=== PATIENT | female | born 1995 | race Caucasian/White ===

== ENCOUNTER 2021-03-07 18:03 | Day surgery (SDC) | payer BC ==
[2021-03-07] MEDS ORDERED: hydrALAZINE 20 MG/ML VIAL SLOW IVP PRN (20:09)
== END 2021-03-07 21:07 | disposition home or self-care (01) ==
LOC: CSHLD/OP 18:03
PROVIDERS: ATTEND Student in an Organized Health Care Education/Training Program
DX: O47.1 False labor at or after 37 completed weeks of gestation (principal); Z3A.38 38 weeks gestation of pregnancy
CPT/HCPCS: 99283

== ENCOUNTER 2021-03-10 06:57 | Day surgery (SDC) | payer BC ==
[2021-03-10 07:30] VITALS: BMI 31.4
[2021-03-10 08:10] LABS: Amnisure Test No Membranes Rupture (No Rupture)
[2021-03-10] MEDS ORDERED: hydrALAZINE 20 MG/ML VIAL SLOW IVP PRN (09:01)
== END 2021-03-10 09:37 | disposition home health service (06) ==
LOC: CSHLD/OP 06:57
PROVIDERS: ATTEND Student in an Organized Health Care Education/Training Program
DX: O47.1 False labor at or after 37 completed weeks of gestation (principal); Z3A.38 38 weeks gestation of pregnancy; Z20.822 Contact with and (suspected) exposure to COVID-19
CPT/HCPCS: 84112; 99283

== ENCOUNTER 2021-03-10 15:31 | Inpatient (IN) | payer BC ==
[2021-03-10] MEDS ORDERED: Acetaminophen 500 MG TAB PO PRN (15:40)
[2021-03-10] MEDS ORDERED: Carboprost 250 MCG/ML AMP IM PRN (15:40)
[2021-03-10] MEDS ORDERED: hydrALAZINE 20 MG/ML VIAL SLOW IVP PRN (15:40)
[2021-03-10] MEDS ORDERED: Butorphanol Tartrate 1 MG/ML VIAL SLOW IVP PRN (15:40)
[2021-03-10] MEDS ORDERED: Ondansetron PF 4 MG/2 ML Vial IVP PRN ×2 (15:40→17:31)
[2021-03-10] MEDS ORDERED: HYDROcodone/Acetaminophen 5/325 mg Tablet PO PRN ×2 (15:40)
[2021-03-10] MEDS ORDERED: Methylergonovine 0.2 MG/ML VIAL IM PRN (15:40)
[2021-03-10] MEDS ORDERED: Diphenoxylate HCl/Atropine Tablet PO PRN ×2 (15:40)
[2021-03-10] MEDS ORDERED: Promethazine HCl 25 MG/ML VIAL IM PRN ×2 (15:40→17:31)
[2021-03-10] MEDS ORDERED: Misoprostol 200 MCG TAB PR PRN (15:40)
[2021-03-10] MEDS ORDERED: Ibuprofen 800 MG TAB PO PRN (15:40)
[2021-03-10] MEDS ORDERED: Lidocaine 1% (PF) 30 ML VIAL SC PRN (15:40)
[2021-03-10] MEDS ORDERED: Penicillin G Potassium 5 MILL.UNITS in Sodium Chloride 0.9% 100 ML IVPB SCH (16:00)
[2021-03-10] MEDS: Lactated Ringer's 1,000 ML IV SCH ×2 (16:00→16:50)
[2021-03-10] MEDS ORDERED: Penicillin G Potassium 5 MILL.UNITS VIAL ONE (16:16)
[2021-03-10 16:24] VITALS: BMI 31.4
[2021-03-10] MEDS ORDERED: Fentanyl 4 mcg/Bup 0.1% Cadd 100 ML ONE (16:37)
[2021-03-10 16:41] LABS: Hemoglobin 11.8 g/dL (12.0-15.5); Mean Corpuscular HGB CONC 33.6 g/dL (32.0-36.0); Mean Corpuscular Hemoglobin 28.2 pg (27.0-33.0); Mean Platelet Volume 10.8 fl (7.4-10.4); Platelet Count 296 10x3/uL (150-450); RBC Distribution Width 13.5 % (11.5-14.5); Red Blood Cell (RBC) Count 4.18 10x6/uL (3.90-5.03); White Blood Cell (WBC) Count 18.4 10x3/uL (3.5-10.5)
[2021-03-10 17:10] LABS: Hep B Surf Ag Non-Reactive S/CO (NonReactive); Syphilis Antibody Nonreactive (Nonreactive); Syphilis Antibody Index 0.06 S/CO (<1.00 Non-Reactive)
[2021-03-10] MEDS: Fentanyl 4 mcg/Bupivacaine 0.1% Cassette 100 ML EPIDURAL SCH (17:28)
[2021-03-10] MEDS ORDERED: Naloxone HCl 0.4 mg/ml Vial IVP PRN ×2 (17:31)
[2021-03-10] MEDS ORDERED: Lactated Ringer's 500 ML IV PRN (17:31)
[2021-03-10] MEDS ORDERED: Eucerin (Mineral Oil/Petrolatum,White) 30 gm Jar TOP PRN (17:31)
[2021-03-10] MEDS ORDERED: diphenhydrAMINE 50 MG/ML VIAL IVP PRN (17:31)
[2021-03-10] MEDS ORDERED: Acetaminophen 325 MG TAB PO PRN (17:31)
[2021-03-10] MEDS ORDERED: ePHEDrine Sulfate 50 MG/10 ML VIAL SLOW IVP PRN (17:36)
[2021-03-10] MEDS ORDERED: Communication Order-Pharmacy FS SCH (17:45)
[2021-03-10 17:57] LABS: HBSAg Index 0.13 S/CO (0-0.99)
[2021-03-10] MEDS ORDERED: Bupivacaine 0.25% HCL 30 ML VIAL ONE (19:51)
[2021-03-10] MEDS ORDERED: Lidocaine 2% MPF 10 ML AMP (For Epidural Use) ONE (19:51)
[2021-03-10] MEDS: Penicillin G 2.5 MILL.units 2.5 MILL.UNITS in Premix Bag 1 BAG IVPB SCH (20:15)
[2021-03-11] MEDS: Penicillin G 2.5 MILL.units 2.5 MILL.UNITS in Premix Bag 1 BAG IVPB SCH ×3 (00:32→09:59)
[2021-03-11] MEDS: Fentanyl 4 mcg/Bupivacaine 0.1% Cassette 100 ML EPIDURAL SCH (00:49)
[2021-03-11 01:28] LABS: SARS-CoV-2 PCR by NAA Not Detected (NotDetected)
[2021-03-11] MEDS: NS w/ Oxytocin 30 units 500 ML IVPB PRN ×2 (04:55→05:27)
[2021-03-11] MEDS ORDERED: Lanolin Ointment 7 GM TUBE TOP PRN (05:00)
[2021-03-11] MEDS ORDERED: NS / Oxytocin 40 units/1000ml 1,000 ML IV SCH (05:00)
[2021-03-11] MEDS ORDERED: Misoprostol 200 MCG TAB VAG PRN (05:00)
[2021-03-11] MEDS ORDERED: Ondansetron PF 4 MG/2 ML Vial IVP PRN (05:00)
[2021-03-11] MEDS ORDERED: Preparation H Ointment 28 GM TUBE PR PRN (05:00)
[2021-03-11] MEDS ORDERED: diphenhydrAMINE 25 MG CAP PO PRN (05:00)
[2021-03-11] MEDS ORDERED: HYDROcodone/Acetaminophen 5/325 mg Tablet PO PRN ×2 (05:00)
[2021-03-11] MEDS ORDERED: Bisacodyl 10 MG SUPP PR PRN (05:00)
[2021-03-11] MEDS ORDERED: Milk Of Magnesia 30 ML UDCUP PO PRN (05:00)
[2021-03-11] MEDS ORDERED: hydrALAZINE 20 MG/ML VIAL SLOW IVP PRN (05:00)
[2021-03-11] MEDS ORDERED: Benzocaine-Menthol 82.5 ML CAN TOP PRN (05:00)
[2021-03-11] MEDS: Ibuprofen 800 MG TAB PO SCH ×3 (05:26→21:42)
[2021-03-11] MEDS ORDERED: Varicella virus, LIVE 0.5 ML VIAL SC ONE (09:00)
[2021-03-11] MEDS ORDERED: Adacel (T-DAP) 0.5 ML SYRINGE IM ONE (09:00)
[2021-03-11] MEDS ORDERED: Measles/Mumps/Rubella 10 MCG/0.5 ML VIAL SC ONE (09:00)
[2021-03-11] MEDS: Ferrous Sulfate 325 MG TAB PO SCH ×2 (09:24→17:20)
[2021-03-11] MEDS: Prenatal Vitamin 1 TAB PO SCH (09:53)
[2021-03-11] MEDS: Docusate Calcium (SURFAK) 240 MG CAP PO SCH ×2 (09:53→21:43)
[2021-03-11] MEDS: Lactated Ringer's 1,000 ML IV SCH (09:58)
[2021-03-12] MEDS: Ibuprofen 800 MG TAB PO SCH ×3 (05:45→21:23)
[2021-03-12] MEDS: Ferrous Sulfate 325 MG TAB PO SCH ×2 (09:11→17:39)
[2021-03-12] MEDS: Prenatal Vitamin 1 TAB PO SCH (09:13)
[2021-03-12] MEDS: Docusate Calcium (SURFAK) 240 MG CAP PO SCH ×2 (09:13→21:23)
[2021-03-13] MEDS: Ibuprofen 800 MG TAB PO SCH ×2 (05:35→13:52)
[2021-03-13 07:51] VITALS: BP 101/60; TEMP 98.3
[2021-03-13] MEDS: Ferrous Sulfate 325 MG TAB PO SCH (08:40)
[2021-03-13] MEDS: Prenatal Vitamin 1 TAB PO SCH (08:41)
[2021-03-13] MEDS: Docusate Calcium (SURFAK) 240 MG CAP PO SCH (08:41)
== END 2021-03-13 18:06 | disposition home or self-care (01) | DRG 806 ==
LOC: CSHLD/OP 15:31 → CSHLD 16:00 → CSHPP 03-11 08:00
PROVIDERS: ADMIT Student in an Organized Health Care Education/Training Program; ATTEND Student in an Organized Health Care Education/Training Program
PROC: 10E0XZZ Delivery of Products of Conception, External Approach (ICD-10-PCS; principal; 2021-03-11)
PROC: 0HQ9XZZ Repair Perineum Skin, External Approach (ICD-10-PCS; 2021-03-11)
DX: O69.81X0 Labor and delivery complicated by cord around neck, without compression, not applicable or unspecified (principal); Z37.0 Single live birth; Z3A.38 38 weeks gestation of pregnancy; Z20.822 Contact with and (suspected) exposure to COVID-19; O86.4 Pyrexia of unknown origin following delivery; O70.0 First degree perineal laceration during delivery; O76 Abnormality in fetal heart rate and rhythm complicating labor and delivery; O99.824 Streptococcus B carrier state complicating childbirth
CPT/HCPCS: 36415; 51701; 51702; 84112; 85027; 86780; 86850; 86900; 86901; 87340; 87635; 90707; 99283; 99285; J2405; J2540; J2590; S0020; U0003; U0005

== ENCOUNTER 2022-11-24 07:25 | Day surgery (SDC) | payer BC ==
[2022-11-24] MEDS ORDERED: hydrALAZINE 20 MG/ML VIAL SLOW IVP PRN (08:27)
[2022-11-24 08:44] LABS: Fetal Membranes Rupture No Membranes Rupture (No Rupture)
== END 2022-11-24 11:31 | disposition home or self-care (01) ==
LOC: CSHLD/OP 07:25
PROVIDERS: ATTEND Student in an Organized Health Care Education/Training Program
DX: O47.03 False labor before 37 completed weeks of gestation, third trimester (principal); O24.419 Gestational diabetes mellitus in pregnancy, unspecified control; Z3A.36 36 weeks gestation of pregnancy
CPT/HCPCS: 84112; 99283

== ENCOUNTER 2022-12-05 22:51 | Inpatient (IN) | payer BC ==
[2022-12-05] MEDS ORDERED: Acetaminophen 500 MG TAB PO PRN (23:24)
[2022-12-05] MEDS ORDERED: Ondansetron PF 4 MG/2 ML Vial IVP PRN (23:24)
[2022-12-05] MEDS ORDERED: Lidocaine 1% (PF) 30 ML VIAL SC PRN (23:24)
[2022-12-05] MEDS ORDERED: Butorphanol Tartrate 1 MG/ML VIAL SLOW IVP PRN (23:24)
[2022-12-05] MEDS ORDERED: hydrALAZINE 20 MG/ML VIAL SLOW IVP PRN (23:24)
[2022-12-05] MEDS ORDERED: Carboprost 250 MCG/ML AMP IM PRN (23:24)
[2022-12-05] MEDS ORDERED: Diphenoxylate HCl/Atropine Tablet PO PRN (23:24)
[2022-12-05] MEDS ORDERED: Methylergonovine 0.2 MG/ML VIAL IM PRN (23:24)
[2022-12-05] MEDS ORDERED: Misoprostol 200 MCG TAB PR PRN (23:24)
[2022-12-05] MEDS ORDERED: Promethazine HCl 25 MG/ML VIAL IM PRN (23:24)
[2022-12-05] MEDS ORDERED: NS w/ Oxytocin 30 units 500 ML IV SCH ×2 (23:30)
[2022-12-05] MEDS ORDERED: Penicillin G Potassium 5 MILL.UNITS in Sodium Chloride 0.9% 100 ML IVPB SCH (23:30)
[2022-12-05] MEDS ORDERED: Lactated Ringer's 1,000 ML IV SCH (23:30)
[2022-12-05 23:52] LABS: Hemoglobin 12.7 g/dL (12.0-15.5); Mean Corpuscular HGB CONC 33.7 g/dL (32.0-36.0); Mean Corpuscular Hemoglobin 29.1 pg (27.0-33.0); Mean Corpuscular Volume 86.3 fl (81.6-98.3); Platelet Count 270 10x3/uL (150-450); RBC Distribution Width 14.4 % (11.5-14.5); Red Blood Cell (RBC) Count 4.37 10x6/uL (3.90-5.03); White Blood Cell (WBC) Count 11.6 10x3/uL (3.5-10.5)
[2022-12-06] MEDS ORDERED: Fentanyl 2 mcg/Bup 0.1% Cadd 100 ML ONE
[2022-12-06] MEDS ORDERED: Fentanyl 100 MCG/2 ML VIAL ONE (00:05)
[2022-12-06 00:23] LABS: Syphilis Antibody Nonreactive (Nonreactive); Syphilis Antibody Index 0.07 S/CO (<1.00 Non-Reactive)
[2022-12-06 00:25] LABS: HBSAg Index 0.16 S/CO (0-0.99); Hep B Surf Ag Non-Reactive S/CO (NonReactive)
[2022-12-06] MEDS ORDERED: Ondansetron PF 4 MG/2 ML Vial IVP PRN ×2 (00:43→06:10)
[2022-12-06] MEDS ORDERED: Moisturizing Cream (Eucerin) 113 GM JAR TOP PRN (00:43)
[2022-12-06] MEDS ORDERED: ePHEDrine Sulfate 50 MG/10 ML VIAL SLOW IVP PRN (00:43)
[2022-12-06] MEDS ORDERED: Lactated Ringer's 500 ML IV PRN (00:43)
[2022-12-06] MEDS ORDERED: Acetaminophen 325 MG TAB PO PRN (00:43)
[2022-12-06] MEDS ORDERED: diphenhydrAMINE 50 MG/ML VIAL IVP PRN (00:43)
[2022-12-06] MEDS ORDERED: Promethazine HCl 25 MG/ML VIAL IM PRN ×2 (00:43→06:10)
[2022-12-06] MEDS ORDERED: Naloxone HCl 0.4 mg/ml Vial IVP PRN ×2 (00:43)
[2022-12-06] MEDS ORDERED: Fentanyl 2 mcg/Bupivacaine 0.1% Cassette 100 ML EPIDURAL SCH (00:45)
[2022-12-06] MEDS ORDERED: Communication Order-Pharmacy FS SCH (00:45)
[2022-12-06] MEDS ORDERED: Penicillin G 2.5 MILL.units 2.5 MILL.UNITS in Premix Bag 1 BAG IVPB SCH (04:00)
[2022-12-06] MEDS ORDERED: Lanolin Ointment 7 GM TUBE TOP PRN (06:10)
[2022-12-06] MEDS ORDERED: diphenhydrAMINE 25 MG CAP PO PRN (06:10)
[2022-12-06] MEDS ORDERED: HYDROcodone/Acetaminophen 5/325 mg Tablet PO PRN (06:10)
[2022-12-06] MEDS ORDERED: Bisacodyl 10 MG SUPP PR PRN (06:10)
[2022-12-06] MEDS ORDERED: Milk Of Magnesia 30 ML UDCUP PO PRN (06:10)
[2022-12-06] MEDS ORDERED: Preparation H Ointment 28 GM TUBE PR PRN (06:10)
[2022-12-06] MEDS ORDERED: hydrALAZINE 20 MG/ML VIAL SLOW IVP PRN (06:10)
[2022-12-06] MEDS ORDERED: Benzocaine-Menthol 82.5 ML CAN TOP PRN (06:10)
[2022-12-06] MEDS: Ibuprofen 800 MG TAB PO SCH ×3 (06:51→21:55)
[2022-12-06] MEDS ORDERED: Bupivacaine/Epinephrine 0.25% 30 ML VIAL ONE (08:00)
[2022-12-06] MEDS ORDERED: Bupivacaine HCl 0.5%/Epinephrine 1:200,000/PF 30 ml Vial ONE (08:00)
[2022-12-06] MEDS: Ferrous Sulfate 325 MG TAB PO SCH ×2 (09:04→16:28)
[2022-12-06] MEDS: Prenatal Vitamin 1 TAB PO SCH (09:05)
[2022-12-06] MEDS: Docusate 100 MG CAP PO SCH ×2 (09:05→21:55)
[2022-12-07] MEDS: Ibuprofen 800 MG TAB PO SCH ×2 (05:07→13:58)
[2022-12-07] MEDS ORDERED: Boostrix 0.5 ML (Tdap) VIAL (>/=7 yrs of age) IM ONE (06:10)
[2022-12-07 07:43] VITALS: BP 95/51; TEMP 97.8
[2022-12-07] MEDS: Prenatal Vitamin 1 TAB PO SCH (08:29)
[2022-12-07] MEDS: Ferrous Sulfate 325 MG TAB PO SCH (08:29)
[2022-12-07] MEDS: Docusate 100 MG CAP PO SCH (08:29)
== END 2022-12-07 14:00 | disposition home or self-care (01) | DRG 807 ==
LOC: CSHLD/OP 22:51 → UNDOADMIN 23:25 → CSHLD 23:25 → CSHANTE 12-06 05:52 → CSHLD 12-06 05:52
PROVIDERS: ADMIT Student in an Organized Health Care Education/Training Program; ATTEND Student in an Organized Health Care Education/Training Program
PROC: 10E0XZZ Delivery of Products of Conception, External Approach (ICD-10-PCS; principal; 2022-12-06)
DX: O99.62 Diseases of the digestive system complicating childbirth (principal); Z37.0 Single live birth; Z3A.39 39 weeks gestation of pregnancy; K21.9 Gastro-esophageal reflux disease without esophagitis; Z79.899 Other long term (current) drug therapy
CPT/HCPCS: 51702; 85027; 86780; 86850; 86900; 86901; 87340; 99285; J2001; J2540; J2590; J3010; J3490

== ENCOUNTER 2024-11-22 04:30 | Day surgery (SDC) | payer OTHER ==
[2024-11-22 05:19] VITALS: BMI 29.7
[2024-11-22] MEDS ORDERED: hydrALAZINE 20 MG/ML VIAL SLOW IVP PRN (05:42)
== END 2024-11-22 09:40 | disposition home health service, planned readmission (86) ==
LOC: CSHLD/OP 04:30
PROVIDERS: ATTEND Student in an Organized Health Care Education/Training Program
DX: O47.1 False labor at or after 37 completed weeks of gestation (principal); O23.593 Infection of other part of genital tract in pregnancy, third trimester; B96.89 Other specified bacterial agents as the cause of diseases classified elsewhere; Z3A.38 38 weeks gestation of pregnancy; Z90.49 Acquired absence of other specified parts of digestive tract; Z88.5 Allergy status to narcotic agent; Z79.899 Other long term (current) drug therapy
CPT/HCPCS: 87480; 87510; 87660

== ENCOUNTER 2024-11-24 20:56 | Day surgery (SDC) | payer OTHER ==
[2024-11-24 21:27] VITALS: BMI 29.7
[2024-11-24] MEDS ORDERED: hydrALAZINE 20 MG/ML VIAL SLOW IVP PRN (22:18)
== END 2024-11-25 02:45 | disposition home or self-care (01) ==
LOC: CSHLD/OP 20:56
PROVIDERS: ATTEND Student in an Organized Health Care Education/Training Program
DX: O47.1 False labor at or after 37 completed weeks of gestation (principal); Z3A.38 38 weeks gestation of pregnancy; Z90.49 Acquired absence of other specified parts of digestive tract; Z88.5 Allergy status to narcotic agent; Z79.899 Other long term (current) drug therapy
CPT/HCPCS: 99283

== ENCOUNTER 2024-11-27 05:44 | Inpatient (IN) | payer OTHER ==
[2024-11-27 06:21] VITALS: BMI 30.4
[2024-11-27] MEDS ORDERED: Ibuprofen 800 MG TAB PO PRN (06:22)
[2024-11-27] MEDS ORDERED: Promethazine HCl 25 MG/ML VIAL IM PRN ×3 (06:22→20:44)
[2024-11-27] MEDS ORDERED: Diphenoxylate HCl/Atropine Tablet PO PRN (06:22)
[2024-11-27] MEDS ORDERED: Ondansetron PF 4 MG/2 ML Vial IVP PRN ×3 (06:22→20:44)
[2024-11-27] MEDS ORDERED: fentaNYL 50 mcg/mL 1 mL Vial SLOW IVP PRN (06:22)
[2024-11-27] MEDS ORDERED: hydrALAZINE 20 MG/ML VIAL SLOW IVP PRN ×2 (06:22→20:44)
[2024-11-27] MEDS ORDERED: Carboprost 250 MCG/ML AMP IM PRN (06:22)
[2024-11-27] MEDS ORDERED: Misoprostol 200 MCG TAB PR PRN (06:22)
[2024-11-27] MEDS ORDERED: Acetaminophen/Codeine 30-300mg Tablet PO PRN (06:22)
[2024-11-27] MEDS ORDERED: Oxytocin 30 units/NS 500 ML 500 ML IV SCH (06:22)
[2024-11-27] MEDS ORDERED: Lidocaine 1% (PF) 30 ML VIAL SC PRN (06:22)
[2024-11-27] MEDS ORDERED: Methylergonovine 0.2 MG/ML VIAL IM PRN (06:22)
[2024-11-27] MEDS ORDERED: Acetaminophen 500 MG TAB PO PRN (06:22)
[2024-11-27] MEDS ORDERED: Lactated Ringer's 1,000 ML IV SCH (06:22)
[2024-11-27] MEDS: Penicillin G Potassium 5 MILL.UNITS in Sodium Chloride 0.9% 100 ML IVPB SCH (07:10)
[2024-11-27] MEDS: Oxytocin 30 units/NS 500 ML 500 ML IV SCH (07:11)
[2024-11-27 07:12] LABS: Hematocrit 37.6 % (34.9-44.5); Hemoglobin 12.5 g/dL (12.0-15.5); Mean Corpuscular HGB CONC 33.2 g/dL (32.0-36.0); Mean Corpuscular Hemoglobin 29.5 pg (27.0-33.0); Mean Corpuscular Volume 88.7 fL (81.6-98.3); Mean Platelet Volume 10.3 fL (7.4-10.4); Platelet Count 262 10x3/uL (150-450); Red Blood Cell (RBC) Count 4.24 10x6/uL (3.90-5.03); White Blood Cell (WBC) Count 10.6 10x3/uL (3.5-10.5)
[2024-11-27 07:44] LABS: HBsAg Index 0.21 S/CO (0-0.99); Hep B Surf Ag - L&D Non-Reactive S/CO (NonReactive)
[2024-11-27 07:46] LABS: Syphilis Antibody Nonreactive (Nonreactive); Syphilis Antibody Index 0.07 S/CO (<1.00 Non-Reactive)
[2024-11-27] MEDS: Penicillin G 2.5 MILL.units 2.5 MILL.UNITS in Premix 1 BAG IVPB SCH (11:10)
[2024-11-27] MEDS ORDERED: Acetaminophen 325 MG TAB PO PRN (12:28)
[2024-11-27] MEDS ORDERED: Lactated Ringer's 500 ML IV PRN (12:28)
[2024-11-27] MEDS ORDERED: diphenhydrAMINE 50 MG/ML VIAL IVP PRN (12:28)
[2024-11-27] MEDS ORDERED: Moisturizing Cream (Eucerin) 113 GM JAR TOP PRN (12:28)
[2024-11-27] MEDS ORDERED: Naloxone HCl 0.4 mg/ml Vial IVP PRN ×2 (12:28)
[2024-11-27] MEDS ORDERED: ePHEDrine Sulfate 50 MG/10 ML VIAL SLOW IVP PRN (12:28)
[2024-11-27] MEDS ORDERED: fentaNYL 2 mcg/Ropivacaine 0.2% Epidural 100 ML CADD EPIDURAL SCH (12:30)
[2024-11-27] MEDS ORDERED: Communication Order-Pharmacy FS SCH (12:30)
[2024-11-27] MEDS: fentaNYL/Ropivacaine Epidural 100 ML ONE (12:39)
[2024-11-27] MEDS ORDERED: diphenhydrAMINE 25 MG CAP PO PRN (20:44)
[2024-11-27] MEDS ORDERED: Milk Of Magnesia 30 ML UDCUP PO PRN (20:44)
[2024-11-27] MEDS ORDERED: Boostrix 0.5 ML (Tdap) VIAL (>/=7 yrs of age) IM ONE (20:44)
[2024-11-27] MEDS ORDERED: Bisacodyl 10 MG SUPP PR PRN (20:44)
[2024-11-27] MEDS ORDERED: Lanolin Ointment 7 GM TUBE TOP PRN (20:44)
[2024-11-27] MEDS ORDERED: Benzocaine-Menthol 82.5 ML CAN TOP PRN (20:44)
[2024-11-27] MEDS ORDERED: Preparation H Ointment 28 GM TUBE PR PRN (20:44)
[2024-11-27] MEDS: Ibuprofen 800 MG TAB PO SCH (21:31)
[2024-11-27] MEDS: Docusate 100 MG CAP PO SCH (21:31)
[2024-11-27] MEDS: Ferrous Sulfate 325 MG TAB PO SCH (21:34)
[2024-11-28] MEDS: Prenatal Vitamin 1 TAB PO SCH (09:38)
[2024-11-28] MEDS: Ferrous Sulfate 325 MG TAB PO SCH (09:45)
[2024-11-28 12:12] VITALS: BP 108/54; TEMP 98.7
== END 2024-11-28 18:05 | disposition home or self-care (01) | DRG 807 ==
LOC: CSHLD 05:44 → CSHPED 19:33
PROVIDERS: ADMIT Student in an Organized Health Care Education/Training Program; ATTEND Student in an Organized Health Care Education/Training Program
PROC: 10E0XZZ Delivery of Products of Conception, External Approach (ICD-10-PCS; principal; 2024-11-27)
DX: O99.824 Streptococcus B carrier state complicating childbirth (principal); Z37.0 Single live birth; Z3A.39 39 weeks gestation of pregnancy; Z88.5 Allergy status to narcotic agent
CPT/HCPCS: 85027; 86780; 86850; 86900; 86901; 87340; J2540; J2590